=== PATIENT | male | born 1980 | race Caucasian/White ===

== ENCOUNTER 2016-11-04 16:00 | Emergency (ER) | payer OTHER ==
--- NOTE | 2016-11-04 16:17 | PDOC ---
Rapid Medical Evaluation Time Seen by Provider: 11/04/16 16:15 Medical Evaluation: Allergies Allergy/AdvReac Type Severity Reaction Status Date / Time No Known Allergies Allergy Verified 11/04/16 16:15 11/04/16 16:15 I have performed a brief in-person evaluation of this patient. The patient presents with a chief complaint of:LUQ pain w/ nausea this am Pertinent physical exam findings:stable and well radha w/ benign abd I have ordered the following:cbc/chem/lipase/ua The patient will proceed to the ED for further evaluation. 11/04/16 16:18 11/04/16 16:18
[2016-11-04 16:18] VITALS: BP 131/89; PULSE 82; TEMP 97.8; BMI 25.8
[2016-11-04 17:00] LABS: URINE APPEARANCE CLEAR; URINE BILIRUBIN NEGATIVE (NEGATIVE); URINE COLOR YELLOW; URINE GLUCOSE (UA) NEGATIVE (NEGATIVE); URINE KETONE 1+ (NEGATIVE); URINE LEUK ESTERASE NEGATIVE (NEGATIVE); URINE NITRITE NEGATIVE (NEGATIVE); URINE PROTEIN NEGATIVE (NEGATIVE); URINE UROBILINOGEN NEGATIVE E.U./dl (0.2-1.0)
[2016-11-04 17:09] LABS: URINE BLOOD 1+ (NEGATIVE)
[2016-11-04 17:12] LABS: BASOPHIL 0.5 % (0-2.0); EOSINOPHIL 0.5 % (0-4.5); MCH 28.2 pg (25.7-33.7); MCHC 34.3 g/dl (32.0-35.9); MEAN CELL VOLUME 82.2 fl (80-96); MEAN PLT VOLUME 7.4 fl (7.5-11.1); NEUTROPHILS 80.7 % (42.8-82.8); PLATELET COUNT 357 K/MM3 (134-434); URINE MUCUS RARE; URINE RBC 13 /hpf (0-3); URINE WBC 1 /hpf (3-5); WHITE BLOOD COUNT 13.9 K/mm3 (4.0-10.0)
[2016-11-04 17:40] LABS: ALBUMIN 4.8 g/dl (3.4-5.0); ANION GAP 11 (8-16); BILIRUBIN,TOTAL 0.9 mg/dL (0.2-1.0); CALCIUM 9.6 mg/dL (8.5-10.1); CO2 25 mmol/L (21-32); CREATININE 1.3 mg/dL (0.7-1.3); GLUCOSE,RANDOM 106 mg/dL (74-106); SGOT/AST 58 U/L (15-37); TOT PROT 8.2 g/dl (6.4-8.2)
[2016-11-04 17:46] LABS: ALK PHOS 90 U/L (45-117); SGPT/ALT 141 U/L (12-78)
[2016-11-04] MEDS ORDERED: SODIUM CHLORIDE 1,000 ML IV STA (19:45)
[2016-11-04] MEDS ORDERED: morphine CARPU-JECT 2 MG/1 ML DISP.SYRIN IM ONE (19:45)
[2016-11-04] MEDS ORDERED: morphine CARPU-JECT 2 MG/1 ML DISP.SYRIN ONE (20:00)
--- NOTE | 2016-11-04 23:06 | PDOC ---
History of Present Illness - General Chief Complaint: Pain Stated Complaint: ABD PAIN Time Seen by Provider: 11/04/16 16:15 History Source: Patient Exam Limitations: No Limitations - History of Present Illness Travel History: No Initial Comments: 11/04/16 22:59 36yo Male patient with no significant past medical history presents to ED c/o LLQ abdominal pain. Patient states symptoms began 2 weeks ago, that quickly subsided, but returned today with "cramping" pains. Patient reports symptoms have been intense. Associated Nausea. He reports normal bowel movements, normal appetite. Patient denies any other complaints at this time. Timing/Duration: reports: getting worse Quality: reports: moderate, cramping Abdominal Pain Onset Location: reports: LLQ Pain Radiation: reports: no radiation Activities at Onset: reports: no specific activity Treatment Prior to Arrive: worse with: analgesics, antacids, cold pack, heat, laxative, enema, other Aggravating Factors: worse with: None, Defecation, Eating, Emotional upset, Exertion, [place], Movement, Voiding, Change in position Alleviating Factors: worse with: None, Belching, Shallow Breathing, Defecation, Eating, Holding Breath, Passing Gas, Change in Position, Rest, Voiding, Vomiting Past History - Travel Traveled outside of the country in the last 30 days: No Close contact w/someone who was outside of country & ill: No - Past Medical History Allergies/Adverse Reactions: Allergies Allergy/AdvReac Type Severity Reaction Status Date / Time No Known Allergies Allergy Verified 11/04/16 16:15 Home Medications: Ambulatory Orders Ibuprofen [Motrin -] 600 mg PO Q6H PRN #30 tablet 11/05/16 Oxycodone HCl/Acetaminophen [Percocet 5-325 mg Tablet] 1 tab PO Q6H PRN #20 tablet MDD 4 TABS 11/05/16 Tamsulosin HCl [Flomax] 0.4 mg PO DAILY #15 capsule 11/05/16 Other medical history: NONE - Immunization History Immunization Up to Date: Yes - Psycho/Social/Smoking Cessation Hx Anxiety: No Suicidal Ideation: No Smoking History: Never smoked Have you smoked in the past 12 months: No Information on smoking cessation initiated: No Hx Alcohol Use: No Drug/Substance Use Hx: No Substance Use Type: None Abd/GI Specific PMHX - Complaint Specific PMHX Colitis: No Diverticulitis: No Gall Bladder Disease: No GERD: No Hepatitis: No Irritable Bowel Synd (IBS): No Pancreatitis: No GI Ulcer Disease: No Review of Systems - Review of Systems Able to Perform ROS?: Yes Is the patient limited Tunisian proficient: No Constitutional: No: Chills, Fever Respiratory: No: Cough, Shortness of Breath, Stridor, Wheezing Cardiac (ROS): No: Chest Pain, Palpitations, Syncope, Chest Tightness ABD/GI: Yes: Nausea, Abdominal cramping. No: Constipated, Diarrhea, Poor Appetite, Poor Fluid Intake, Vomiting : No: Burning, Dysuria, Flank Pain, Hematuria, Testicular Pain Musculoskeletal: No: Back Pain All Other Systems: Reviewed and Negative *Physical Exam - Vital Signs Last Vital Signs Temp Pulse Resp BP Pulse Ox 97.8 F 82 18 131/89 100 11/04/16 16:16 11/04/16 16:16 11/04/16 16:16 11/04/16 16:16 11/04/16 16:16 - Physical Exam General Appearance: Yes: Nourished, Appropriately Dressed. No: Apparent Distress, Mild Distress, Moderate Distress, Severe Distress Neck: positive: Trachea midline, Normal Thyroid, Supple. negative: Tender, Rigid, Stridor, Lymphadenopathy (R), Lymphadenopathy (L) Respiratory/Chest: positive: Lungs Clear, Normal Breath Sounds. negative: Chest Tender, Respiratory Distress, Accessory Muscle Use, Labored Respiration, Rapid RR, Stridor, Wheezing Cardiovascular: positive: Regular Rhythm, Regular Rate Gastrointestinal/Abdominal: positive: Normal Bowel Sounds, Tender, Soft, Rebound (LLQ), Tenderness (LLQ). negative: Flat, Distended, Guarding Musculoskeletal: positive: Normal Inspection. negative: CVA Tenderness Extremity: positive: Normal Capillary Refill, Normal Inspection, Normal Range of Motion. negative: Pedal Edema, Swelling, Calf Tenderness, Erythema, Inflammation Integumentary: positive: Normal Color, Dry, Warm Neurologic: positive: water and gas helper II-XII NML intact, Fully Oriented, Alert, Normal Mood/ Affect, Normal Response, Motor Strength /5 ED Treatment Course - LABORATORY CBC & Chemistry Diagram: 11/04/16 16:40 11/04/16 16:40 - ADDITIONAL ORDERS Additional order review: Laboratory Results 11/04/16 11/04/16 16:40 16:40 Sodium 138 Potassium 4.1 Chloride 102 Carbon Dioxide 25 Anion Gap 11 BUN 16 Creatinine 1.3 Creat Clearance w eGFR > 60 Random Glucose 106 Calcium 9.6 Total Bilirubin 0.9 AST 58 H ALT 141 H Alkaline Phosphatase 90 Total Protein 8.2 Albumin 4.8 Lipase 116 Urine Color Yellow Urine Appearance Clear Urine pH 7.0 Ur Specific [place] 1.020 Urine Protein Negative Urine Glucose (UA) Negative Urine Ketones 1+ H Urine Blood 1+ H Urine Nitrite Negative Urine Bilirubin Negative Urine Urobilinogen Negative Ur Leukocyte Esterase Negative Urine RBC 13 Urine WBC 1 Urine Mucus Rare 11/04/16 16:40 RBC 5.80 H MCV 82.2 MCHC 34.3 RDW 13.0 MPV 7.4 L Neutrophils % 80.7 Lymphocytes % 13.0 Monocytes % 5.3 Eosinophils % 0.5 Basophils % 0.5 - RADIOLOGY Radiology Studies Ordered: Category Date Time Status ABDOMEN & PELVIS CT WITH CONTR [CT] Stat CT Scan 11/04/16 19:45 Taken - Medications Given in the ED: ED Medications Discontinued Medications Generic Name Dose Route Start Last Admin Trade Name Freq PRN Reason Stop Dose Admin Sodium Chloride 1,000 mls @ 1,000 mls/hr 11/04/16 19:45 11/04/16 20:08 Normal Saline - IV 11/04/16 20:44 1,000 mls/hr ASDIR STA Administration Morphine Sulfate 2 mg 11/04/16 19:45 11/04/16 20:08 Morphine Injection - IM 11/04/16 19:46 2 mg ONCE ONE Administration *DC/Admit/Observation/Transfer Diagnosis at time of Disposition: Hydronephrosis with renal and ureteral calculus obstruction - Discharge Dispostion Disposition: HOME Condition at time of disposition: Improved Admit: No - Prescriptions Prescriptions: Tamsulosin HCl [Flomax] 0.4 mg PO DAILY #15 capsule Ibuprofen [Motrin -] 600 mg PO Q6H PRN #30 tablet PRN Reason: Mild Pain Oxycodone HCl/Acetaminophen [Percocet 5-325 mg Tablet] 1 tab PO Q6H PRN #20 tablet MDD 4 TABS PRN Reason: Severe Pain - Referrals Referrals: Tariq Crowder MD [Staff Physician] - - Patient Instructions Printed Discharge Instructions: Kidney Stones -- Adult Additional Instructions: Follow up with Dr. Crowder (Urology) tomorrow morning for obstructing renal stone. Take medications as prescribed. Do not drive, drink alcohol, or operate heavy machinery while taking Percocet. Return if symptoms worsen or any concerns for further evaluation. Dr. Crowder is expecting you at 9am as discussed. Print Language: LIBERIAN - Post Discharge Activity Work/School Note: Back to Work
--- NOTE | 2016-11-04 23:22 | PDOC ---
*Physical Exam - Vital Signs Last Vital Signs Temp Pulse Resp BP Pulse Ox 97.8 F 82 18 131/89 100 11/04/16 16:16 11/04/16 16:16 11/04/16 16:16 11/04/16 16:16 11/04/16 16:16 ED Treatment Course - LABORATORY CBC & Chemistry Diagram: 11/04/16 16:40 11/04/16 16:40 - ADDITIONAL ORDERS Additional order review: Laboratory Results 11/04/16 11/04/16 16:40 16:40 Sodium 138 Potassium 4.1 Chloride 102 Carbon Dioxide 25 Anion Gap 11 BUN 16 Creatinine 1.3 Creat Clearance w eGFR > 60 Random Glucose 106 Calcium 9.6 Total Bilirubin 0.9 AST 58 H ALT 141 H Alkaline Phosphatase 90 Total Protein 8.2 Albumin 4.8 Lipase 116 Urine Color Yellow Urine Appearance Clear Urine pH 7.0 Ur Specific [place] 1.020 Urine Protein Negative Urine Glucose (UA) Negative Urine Ketones 1+ H Urine Blood 1+ H Urine Nitrite Negative Urine Bilirubin Negative Urine Urobilinogen Negative Ur Leukocyte Esterase Negative Urine RBC 13 Urine WBC 1 Urine Mucus Rare 11/04/16 16:40 RBC 5.80 H MCV 82.2 MCHC 34.3 RDW 13.0 MPV 7.4 L Neutrophils % 80.7 Lymphocytes % 13.0 Monocytes % 5.3 Eosinophils % 0.5 Basophils % 0.5 - Medications Given in the ED: ED Medications Discontinued Medications Generic Name Dose Route Start Last Admin Trade Name Freq PRN Reason Stop Dose Admin Sodium Chloride 1,000 mls @ 1,000 mls/hr 11/04/16 19:45 11/04/16 20:08 Normal Saline - IV 11/04/16 20:44 1,000 mls/hr ASDIR STA Administration Morphine Sulfate 2 mg 11/04/16 19:45 11/04/16 20:08 Morphine Injection - IM 11/04/16 19:46 2 mg ONCE ONE Administration Medical Decision Making - Medical Decision Making 11/04/16 23:21 agree with care from ANDREW Negrete *DC/Admit/Observation/Transfer Diagnosis at time of Disposition: Hydronephrosis with renal and ureteral calculous obstruction - Discharge Dispostion Disposition: HOME Condition at time of disposition: Improved - Prescriptions Prescriptions: Tamsulosin HCl [Flomax] 0.4 mg PO DAILY #15 capsule Ibuprofen [Motrin -] 600 mg PO Q6H PRN #30 tablet PRN Reason: Mild Pain Oxycodone HCl/Acetaminophen [Percocet 5-325 mg Tablet] 1 tab PO Q6H PRN #20 tablet MDD 4 TABS PRN Reason: Severe Pain - Referrals Referrals: Tariq Crowder MD [Staff Physician] - - Patient Instructions Printed Discharge Instructions: Kidney Stones -- Adult Additional Instructions: Follow up with Dr. Crowder (Urology) tomorrow morning for obstructing renal stone. Take medications as prescribed. Do not drive, drink alcohol, or operate heavy machinery while taking Percocet. Return if symptoms worsen or any concerns for further evaluation. Dr. Crowder is expecting you at 9am as discussed. Print Language: IRAQI - Post Discharge Activity Work/School Note: Back to Work
[2016-11-05] MEDS ORDERED: TAMSULOSIN HCL 0.4 MG CAP.ER.24H (FP) PO ONE (00:12)
[2016-11-05] MEDS ORDERED: TAMSULOSIN HCL 0.4 MG CAP.ER.24H (FP) ONE (00:34)
== END 2016-11-05 00:44 | disposition home or self-care (01) ==
LOC: JER 16:00
PROC: 3E0337Z Introduction of Electrolytic and Water Balance Substance into Peripheral Vein, Percutaneous Approach (ICD-10-PCS; principal; 2016-11-04)
PROC: 3E023NZ Introduction of Analgesics, Hypnotics, Sedatives into Muscle, Percutaneous Approach (ICD-10-PCS; 2016-11-04)
DX: N13.2 Hydronephrosis with renal and ureteral calculous obstruction (principal)
CPT/HCPCS: 36415; 74177-TC; 80053; 81003; 81015; 83690; 85025; 96360; 96372; 99283-25; Q9967